=== PATIENT | female | born 1990 | race African-American/Black ===

== ENCOUNTER 2018-01-01 13:06 | Emergency (ER) | payer MEDICAID ==
[~2018-01-01] VITALS: Ht 157.5 cm; Wt 59.0 kg
[2018-01-01 13:20] VITALS: BP 99/68
--- NOTE | 2018-01-01 13:43 | Emergency Room Report ---
History of Present Illness General Chief Complaint: Abdominal Pain Source: Patient Present Illness HPI 27-year-old female patient presents to ER complaining of abdominal pain for the past 4 days. Reports was previously seen at another hospital where she had labs and CT imaging done, states that she was waiting for a while and known gave her the results of her tests or imaging so she decided to leave. Denies blood in her vomit. Reports last bowel movement several days ago. Denies diarrhea. Denies travel outside of the [place]. Denies contacts with similar symptoms. Denies history of abdominal surgery. Reports history of smoking marijuana. Denies fever, chest pain, shortness of breath, dysuria, hematuria, flank pain, back pain. Allergies: Coded Allergies: No Known Allergies (Unverified , 01/01/18) Patient History Past Medical History: see triage record Last Menstrual Period: December, Now: No Reviewed Nursing Documentation: PMH: Agreed; PSxH: Agreed Nursing Documentation-PMH Past Medical History: No Stated History Review of Systems All Other Systems: negative except mentioned in HPI Physical Exam Vital Signs Date Time Temp Pulse Resp B/P (MAP) Pulse Ox O2 Delivery O2 Flow Rate FiO2 01/01/18 13:15 98.1 88 20 104/67 98 Room Air 98.1 Sp02 EP Interpretation: reviewed, normal General Appearance: well appearing, no apparent distress, alert, GCS 15, non- toxic Head: normocephalic, atraumatic Eyes: bilateral eye normal inspection, bilateral eye PERRL ENT: hearing grossly normal, normal pharynx, no angioedema, normal voice, uvula midline, moist mucus membranes Neck: full range of motion Respiratory: lungs clear, normal breath sounds, no rhonchi, no respiratory distress, no accessory muscle use, no wheezing, speaking full sentences Cardiovascular #1: regular rate, rhythm, no edema Gastrointestinal: soft, no mass, non-distended, no guarding, no rebound, tenderness - positive Viveros sign, other - negative Rovsing, negative obturator Genitourinary: no CVA tenderness Musculoskeletal: back normal, digits/nails normal, gait/station normal, normal range of motion, non-tender Neurologic: alert, oriented x3, responsive, motor strength/tone normal, sensory intact Psychiatric: mood/affect normal Skin: no rash Medical Decision Making PA Attestation Dr. Rodriguez is my supervising Physician whom patient management has been discussed with. Diagnostic Impression: Primary Impression: UTI (urinary tract infection) Additional Impressions: Sludge in gallbladder Constipation ER Course Pt. presents to the ED c/o abdominal pain and vomiting. Ddx considered but are not limited to UTI, cholelithiasis, cholecystitis, pancreatitis, appendicitis, diverticulitis, constipation, marijuana use. patient initially complaining of right lower quadrant pain on physical exam no palpable tenderness to palpation in right lower quadrant, negative obturator, negative Rovsing, low suspicion for appendicitis. Does not require CT imaging. Begin abdominal pain workup. Provided patient with pain medication. ordered ultrasound to rule out possible gallbladder problems due to positive Viveros sign exam. Vital signs: are WNL, pt. is afebrile ORDERS: CBC, CMP, Lipase, UA, CT abdomen pelvis, Zofran, GI cocktail and pain medication. ER COURSE: CBC mild elevation of WBC CMP no elevation of LFTs Lipase within normal limits UA shows elevated WBCs, likely UTI, with elevated WBCs in CBC, will provide patient with outpatient antibiotic treatment. Urine negative. Discuss results with patient. ultrasound abdomen shows gallbladder sludge. Discuss results with the patient. Provided patient with copy of results. Instructed patient to followup with PCP and discuss results of report with patient, discuss need for further treatment and referral. Patient reports relief of pain symptoms with medication. Consult with surgeon containers sales representative Dr. Boo, patient seen and evaluated by him at bedside, states patient is okay for outpatient follow-up and treatment. does not require admission at this time. ER precautions given. return to ER for new or worsening of symptoms. Will provide patient with medication for constipation symptoms. recommend Drink plenty of fluids. advised against smoking marijuana as may lead to cyclical vomiting syndrome. take Tylenol for pain symptoms. provided with contact information for Dr. Boo, follow with primary care provider and discuss treatment and referral at that time. DISCHARGE: Rx milk of magnesium Rx Keflex Rx Tylenol At this time pt. is stable for d/c to home. Patient resting comfortably, in no acute distress, nontoxic appearing, talking without difficulty. Rx provided to patient. Patient to take medications as instructed Will provide with patient care instructions and any necessary prescriptions. Care plan and follow-up instructions provided. Patient instructed to follow-up with primary care provider in 3 - 5 days. Patient questions asked and answered. Patient reports understanding and agreement to treatment plan. ER precautions given. Patient instructed to return to ER immediately for any new or worsening of symptoms including but not limited to increasing SOB, persistent fever, worsening of pain symptoms, intractable vomiting, blood in stool, urine, and/or emesis. - Please note that this Emergency Department Report was dictated using [employer] Markets[employer] services director technology software, occasionally this can lead to erroneous entry secondary to interpretation by the dictation equipment. Labs Test 01/01/18 13:50 White Blood Count 12.3 K/UL (4.8-10.8) Red Blood Count 4.22 M/UL (4.20-5.40) Hemoglobin 13.7 G/DL (12.0-16.0) Hematocrit 39.6 % (37.0-47.0) Mean Corpuscular Volume 94 FL (80-99) Mean Corpuscular Hemoglobin 32.4 PG (27.0-31.0) Mean Corpuscular Hemoglobin Concent 34.5 G/DL (32.0-36.0) Red Cell Distribution Width 11.1 % (11.6-14.8) Platelet Count 356 K/UL (150-450) Mean Platelet Volume 6.6 FL (6.5-10.1) Neutrophils (%) (Auto) 72.5 % (45.0-75.0) Lymphocytes (%) (Auto) 20.2 % (20.0-45.0) Monocytes (%) (Auto) 5.9 % (1.0-10.0) Eosinophils (%) (Auto) 0.0 % (0.0-3.0) Basophils (%) (Auto) 1.4 % (0.0-2.0) Urine Color Yellow Urine Appearance Slightly cloudy Urine pH 6 (4.5-8.0) Urine Specific [place] 1.015 (1.005-1.035) Urine Protein 1+ (NEGATIVE) Urine Glucose (UA) Negative (NEGATIVE) Urine Ketones Negative (NEGATIVE) Urine Occult Blood 4+ (NEGATIVE) Urine Nitrite Negative (NEGATIVE) Urine Bilirubin Negative (NEGATIVE) Urine Urobilinogen Normal MG/DL (0.0-1.0) Urine Leukocyte Esterase 3+ (NEGATIVE) Urine RBC 5-10 /HPF (0 - 2) Urine WBC 10-15 /HPF (0 - 2) Urine Squamous Epithelial Cells Few /LPF (NONE/OCC) Urine Bacteria Few /HPF (NONE) Urine HCG, Qualitative Negative (NEGATIVE) Sodium Level 139 MMOL/L (136-145) Potassium Level 3.5 MMOL/L (3.5-5.1) Chloride Level 104 MMOL/L (98-107) Carbon Dioxide Level 28 MMOL/L (21-32) Anion Gap 7 mmol/L (5-15) Blood Urea Nitrogen 10 mg/dL (7-18) Creatinine 0.8 MG/DL (0.55-1.30) Estimat Glomerular Filtration Rate > 60 mL/min (>60) Glucose Level 88 MG/DL (74-106) Calcium Level 9.0 MG/DL (8.5-10.1) Total Bilirubin 0.5 MG/DL (0.2-1.0) Aspartate Amino Transf (AST/SGOT) 15 U/L (15-37) Alanine Aminotransferase (ALT/SGPT) 21 U/L (12-78) Alkaline Phosphatase 50 U/L (46-116) Total Protein 7.5 G/DL (6.4-8.2) Albumin 3.7 G/DL (3.4-5.0) Globulin 3.8 g/dL Albumin/Globulin Ratio 1.0 (1.0-2.7) Lipase 77 U/L (73-393) CT/MRI/US Diagnostic Results CT/MRI/US Diagnostic Results : Imaging Test Ordered: abdominal US Impression sludge in gallbladder no appendicitis per [place] air conditioning service technician Impression: Gallbladder sludge. Negative for stones or dilated ducts Unremarkable exam otherwise Last Vital Signs Date Time Temp Pulse Resp B/P (MAP) Pulse Ox O2 Delivery O2 Flow Rate FiO2 01/01/18 13:15 98.1 88 20 104/67 98 Room Air 98.1 Disposition: HOME, SELF-CARE Condition: Stable Scripts Magnesium Hydroxide* (MILK OF MAGNESIA*) 400 Mg/5 Ml Oral.susp 5 ML ORAL Q6HR, #100 ML Prov: Willy Groves P.ALeonarda 01/01/18 Acetaminophen* (TYLENOL EXTRA STRENGTH*) 500 Mg Tablet 500 MG ORAL Q8H PRN for Prn Headache/Temp > 101, #30 TAB 0 Refills Prov: Willy Groves P.A. 01/01/18 Cephalexin* (KEFLEX*) 500 Mg Capsule 500 MG ORAL EVERY 12 HOURS, #14 CAP 0 Refills Prov: Willy Groves 01/01/18 Patient Instructions: Abdominal Pain, Adult, Biliary Colic, Cholelithiasis, [id number], Constipation, Adult, [id number], Gastritis, Adult, Urinary Tract Infection, [id number] Additional Instructions: Followup with primary care provider in 3 -5 days. discuss referral to GI specialist and/or surgeon. Drink plenty of fluids. Take medications as directed. Patient questions asked and answered. ER precautions given, patient instructed to return to ER immediately for any new or worsening of symptoms including but not limited to worsening of abdominal pain, chest pain, shortness of breath, intractable vomiting. Willy Groves Jan 01, 2018 13:43
[2018-01-01] MEDS ORDERED: Mylanta II UD 30ml ORAL ONE (13:45)
[2018-01-01] MEDS ORDERED: Ketorolac 30mg Inj IV ONE (13:45)
[2018-01-01] MEDS ORDERED: Dicyclomine HCl 10mg/5ml oral soln ORAL ONE (13:45)
[2018-01-01] MEDS ORDERED: Lidocaine 2% Visc 15ml soln ORAL ONE (13:45)
[2018-01-01 14:08] LABS: BASOPHILS % (AUTO) 1.4 % (0.0-2.0); HEMATOCRIT 39.6 % (37.0-47.0); HEMOGLOBIN 13.7 G/DL (12.0-16.0); LYMPHOCYTES % (AUTO) 20.2 % (20.0-45.0); MEAN CORPUSCULAR VOLUME 94 FL (80-99); MONOCYTES % (AUTO) 5.9 % (1.0-10.0); NEUTROPHILS % (AUTO) 72.5 % (45.0-75.0); PLATELET COUNT 356 K/UL (150-450); RED BLOOD COUNT 4.22 M/UL (4.20-5.40); RED CELL DISTRIBUTION WIDTH 11.1 % (11.6-14.8); WHITE BLOOD COUNT 12.3 K/UL (4.8-10.8)
[2018-01-01 14:10] LABS: APPEARANCE,URINE SLIGHTLY CLOUDY; BILIRUBIN, URINE NEGATIVE (NEGATIVE); GLUCOSE, URINE (UA) NEGATIVE (NEGATIVE); KETONES,URINE NEGATIVE (NEGATIVE); LEUKOCYTE ESTERASE ,URINE 3+ (NEGATIVE); NITRITE,URINE NEGATIVE (NEGATIVE); PH,URINE 6 (4.5-8.0); PROTEIN,URINE 1+ (NEGATIVE); UROBILINOGEN,URINE NORMAL MG/DL (0.0-1.0)
[2018-01-01 14:12] LABS: COLOR,URINE YELLOW
[2018-01-01 14:18] LABS: ANION GAP 7 mmol/L (5-15); BLOOD UREA NITROGEN 10 mg/dL (7-18); CARBON DIOXIDE 28 MMOL/L (21-32); CHLORIDE 104 MMOL/L (98-107); CREATININE 0.8 MG/DL (0.55-1.30); POTASSIUM 3.5 MMOL/L (3.5-5.1); SODIUM 139 MMOL/L (136-145)
[2018-01-01 14:22] LABS: ALANINE AMINOTRANSFERASE 21 U/L (12-78); ALBUMIN 3.7 G/DL (3.4-5.0); ALKALINE PHOSPHATASE 50 U/L (46-116); ASPARTATE AMINO TRANSFERASE 15 U/L (15-37); BILIRUBIN,TOTAL 0.5 MG/DL (0.2-1.0)
--- NOTE | 2018-01-01 15:53 | Diagnostic Imaging Report ---
Indication: Abdominal pain Technique: Nascimento-scale and duplex images of the upper abdomen were obtained Comparison: none Findings: Gallbladder demonstrates sludge. No stones, wall thickening, nor pericholecystic fluid demonstrated Sonographic Viveros's sign is negative. Common bile duct measures to mm in diameter. No intrahepatic biliary ductal dilatation. Liver demonstrates normal echogenicity, no focal abnormality. Portal vein and hepatic veins are patent. Pancreas is unremarkable. Spleen is unremarkable. Left kidney measures 11 cm in length. Right kidney measures 12.8 cm length. Both kidneys demonstrate normal echogenicity. There is no hydronephrosis. No focal abnormality . Non-aneurysmal abdominal aorta . Impression: Gallbladder sludge. Negative for stones or dilated ducts Unremarkable exam otherwise
[2018-01-01 16:23] VITALS: BP 108/64
[2018-01-01] MEDS ORDERED: Piperacillin/Tazobactam 3.375 GM in NS 110 ML IVPB ONE (17:00)
[2018-01-01] MEDS ORDERED: MILK OF MA400 MG/51 ORAL (17:32)
[2018-01-01] MEDS ORDERED: CEPHALEXIN500 MG ORAL (17:32)
[2018-01-01] MEDS ORDERED: TYLENOL EXTRA500 MG ORAL (17:32)
--- NOTE | 2018-01-01 17:39 | Consultation ---
History of Present Illness General Date patient seen: Jan 01, 2018 Chief Complaint: Abdominal Pain Reason for Consultation: right sided abdominal pain Present Illness HPI 27 year old otherwise healthy female presents with 4 days of right sided abdominal discomfort. First noted pain 4 days ago as right sided cramping. went to [facility] ED but left AMA prior to work up. Was okay since with just intermittent right sided pain / cramping. As did not improve came to [facility] ED today for evaluation. no n/v/f/c. comfortable. states pain improved since arrival to ED. cramping 6/10 at times. mainly right side. no relation to food. states she has not had BM in more than 4 days. In ED noted to have UTI, leukocytosis, and some RUQ pain with otherwise normal ultrasound. Surgery called to evaluate for abdominal pain. patient seen, chart reviewed, patient examined. Allergies: Coded Allergies: No Known Allergies (Unverified , 01/01/18) Patient History History Provided By: Patient, Medical Record, PMD Healthcare decision maker Resuscitation status Advanced Directive on File Past Medical/Surgical History Past Medical/Surgical History: (1) Abdominal pain (2) Constipation (3) UTI (urinary tract infection) (4) Sludge in gallbladder Review of Systems All Other Systems: negative except mentioned in HPI Physical Exam General Appearance: no apparent distress Lines, tubes and drains: peripheral HEENT: normocephalic, atraumatic, anicteric, mucous membranes moist, PERRL Neck: non-tender, normal alignment, supple, normal inspection Respiratory/Chest: lungs clear, normal breath sounds, no respiratory distress, no accessory muscle use Cardiovascular/Chest: normal peripheral pulses, normal rate Abdomen: normal bowel sounds, non tender, soft, no organomegaly, no mass, other - minimal vague right sided pain on deep palpation Extremities: normal inspection Skin Exam: normal pigmentation, warm/dry Neurologic: alert, oriented x 3 Last 24 Hour Vital Signs Date Time Temp Pulse Resp B/P (MAP) Pulse Ox O2 Delivery O2 Flow Rate FiO2 01/01/18 16:23 97.6 94 18 108/64 98 Room Air 97.6 01/01/18 14:36 98.1 01/01/18 14:06 98.1 01/01/18 13:20 98.1 90 21 99/68 99 Room Air 98.1 01/01/18 13:15 98.1 88 20 104/67 98 Room Air 98.1 Laboratory Tests Test 01/01/18 13:50 White Blood Count 12.3 K/UL (4.8-10.8) H Red Blood Count 4.22 M/UL (4.20-5.40) Hemoglobin 13.7 G/DL (12.0-16.0) Hematocrit 39.6 % (37.0-47.0) Mean Corpuscular Volume 94 FL (80-99) Mean Corpuscular Hemoglobin 32.4 PG (27.0-31.0) H Mean Corpuscular Hemoglobin Concent 34.5 G/DL (32.0-36.0) Red Cell Distribution Width 11.1 % (11.6-14.8) L Platelet Count 356 K/UL (150-450) Mean Platelet Volume 6.6 FL (6.5-10.1) Neutrophils (%) (Auto) 72.5 % (45.0-75.0) Lymphocytes (%) (Auto) 20.2 % (20.0-45.0) Monocytes (%) (Auto) 5.9 % (1.0-10.0) Eosinophils (%) (Auto) 0.0 % (0.0-3.0) Basophils (%) (Auto) 1.4 % (0.0-2.0) Urine Color Yellow Urine Appearance Slightly cloudy Urine pH 6 (4.5-8.0) Urine Specific [place] 1.015 (1.005-1.035) Urine Protein 1+ (NEGATIVE) H Urine Glucose (UA) Negative (NEGATIVE) Urine Ketones Negative (NEGATIVE) Urine Occult Blood 4+ (NEGATIVE) H Urine Nitrite Negative (NEGATIVE) Urine Bilirubin Negative (NEGATIVE) Urine Urobilinogen Normal MG/DL (0.0-1.0) Urine Leukocyte Esterase 3+ (NEGATIVE) H Urine RBC 5-10 /HPF (0 - 2) H Urine WBC 10-15 /HPF (0 - 2) H Urine Squamous Epithelial Cells Few /LPF (NONE/OCC) Urine Bacteria Few /HPF (NONE) Urine HCG, Qualitative Negative (NEGATIVE) Sodium Level 139 MMOL/L (136-145) Potassium Level 3.5 MMOL/L (3.5-5.1) Chloride Level 104 MMOL/L (98-107) Carbon Dioxide Level 28 MMOL/L (21-32) Anion Gap 7 mmol/L (5-15) Blood Urea Nitrogen 10 mg/dL (7-18) Creatinine 0.8 MG/DL (0.55-1.30) Estimat Glomerular Filtration Rate > 60 mL/min (>60) Glucose Level 88 MG/DL (74-106) Calcium Level 9.0 MG/DL (8.5-10.1) Total Bilirubin 0.5 MG/DL (0.2-1.0) Aspartate Amino Transf (AST/SGOT) 15 U/L (15-37) Alanine Aminotransferase (ALT/SGPT) 21 U/L (12-78) Alkaline Phosphatase 50 U/L (46-116) Total Protein 7.5 G/DL (6.4-8.2) Albumin 3.7 G/DL (3.4-5.0) Globulin 3.8 g/dL Albumin/Globulin Ratio 1.0 (1.0-2.7) Lipase 77 U/L (73-393) Height (Feet): 5 Height (Inches): 2.00 Weight (Pounds): 130 Assessment/Plan Problem List: (1) Constipation ICD Codes: K59.00 - Constipation, unspecified SNOMED: 44316707 (2) Abdominal pain Assessment & Plan: abdominal pain likely related to constipation. 4 day hx without worsening. ultrasound okay. exam benign. no signs or symptoms of appendicitis or management information systems director issues. leukocytosis likely related to UTI discussed findings with patient. offered admission for observation vs dc with follow up. patient wants to go home. she does not want to be admitted. if symptoms do not improve with bowel care and abx she will return rayna follow up with pcp upon discharge. thank you ICD Codes: R10.9 - Unspecified abdominal pain SNOMED: [id number] Status: stable Erickson Boo Jan 01, 2018 17:39
[2018-01-01 17:43] VITALS: BP 108/64
[2018-01-02] MEDS ORDERED: NKM (07:09)
[2018-01-02] MEDS ORDERED: ZOFRAN4 MG ORAL (07:27)
== END 2018-01-01 17:50 | disposition home or self-care (01) ==
LOC: EMR 14:38 → CANBEDREQ 17:12 → EMR 17:50
DX: N39.0 Urinary tract infection, site not specified (principal); K82.9 Disease of gallbladder, unspecified; K59.00 Constipation, unspecified
CPT/HCPCS: 36415; 76700; 80053; 81003; 81025; 83690; 85025; 87086; 96361; 96365; 96375; 99285; J1885; J2405

== ENCOUNTER 2018-01-02 06:55 | Emergency (ER) | payer MEDICAID ==
[~2018-01-02] VITALS: Ht 154.9 cm; Wt 49.9 kg
[~2018-01-02 06:55] MED LIST: CEPHALEXIN500 MG ORAL; MILK OF MA400 MG/51 ORAL; TYLENOL EXTRA500 MG ORAL
[2018-01-02] MEDS ORDERED: NKM (07:09)
--- NOTE | 2018-01-02 07:26 | Emergency Room Report ---
History of Present Illness General Chief Complaint: Abdominal Pain Source: Patient Present Illness HPI This patient c/o 3-4 days frequent vomiting, nausea. No fever, no change in bowel habits. No abd pain other than discomfort due to vomiting. No dysuria. No similar history. No cp, sob, travel, leg pain/swelling. She does use marijuana daily. No Meds, no PMH Allergies: Coded Allergies: No Known Allergies (Unverified , 01/01/18) Patient History Last Menstrual Period: 01/02/18 Nursing Documentation-PMH Past Medical History: No Stated History Review of Systems Constitutional: Reports: no symptoms Eye: Reports: no symptoms ENT: Reports: no symptoms Respiratory: Reports: no symptoms Cardiovascular: Reports: no symptoms Gastrointestinal: Reports: see HPI, nausea, vomiting Genitourinary: Reports: no symptoms Musculoskeletal: Reports: no symptoms Skin: Reports: no symptoms Psychiatric: Reports: no symptoms Neurological: Reports: no symptoms Endocrine: Reports: no symptoms Hematologic/Lymphatic: Reports: no symptoms Allergic: Reports: no symptoms Physical Exam Vital Signs Date Time Temp Pulse Resp B/P (MAP) Pulse Ox O2 Delivery O2 Flow Rate FiO2 01/02/18 07:07 99.7 90 18 145/85 99 Room Air 99.7 Sp02 EP Interpretation: reviewed, normal General Appearance: normal inspection, well appearing, no apparent distress, alert, GCS 15, non-toxic, other - nausea/vomiting Head: normocephalic, atraumatic Eyes: bilateral eye normal inspection, bilateral eye PERRL, bilateral eye EOMI ENT: normal ENT inspection, hearing grossly normal, normal pharynx, no angioedema, normal voice, moist mucus membranes Neck: normal inspection, full range of motion, supple, no meningismus, no bony tend Respiratory: normal inspection, lungs clear, normal breath sounds, no rhonchi, no respiratory distress, no retraction, no accessory muscle use, no wheezing Cardiovascular #1: normal inspection, regular rate, rhythm, no edema Gastrointestinal: normal inspection, normal bowel sounds, non tender, soft, no mass, non-distended Musculoskeletal: gait/station normal, normal range of motion Neurologic: normal inspection, alert, oriented x3, responsive, motor strength/ tone normal Psychiatric: normal inspection, judgement/insight normal, memory normal Suicide Risk Assessment: Suicidal Ideation: No Had intent to initiate attempt: No Pt's plan for suicide attempt: No Has means to complete attempt: No Skin: normal inspection, normal color, no rash, warm/dry Medical Decision Making Diagnostic Impression: Primary Impression: UTI (urinary tract infection) ER Course slight improved after IV fluids, IV Zofran. but pt. still uncomfortable. she was here yesterday has US gb which showed sludge only, had surgery consult in ED agreed not gb. on today's exam no RUQ tenderness and UA shows UTI as did yesterday. no chart yet from yesterday's ED provider but was given Rx. according to pt. but she did not fill. a: UTI p: Ceftriaxone here Last Vital Signs Date Time Temp Pulse Resp B/P (MAP) Pulse Ox O2 Delivery O2 Flow Rate FiO2 01/02/18 07:07 99.7 90 18 145/85 99 Room Air 99.7 Disposition: HOME, SELF-CARE Condition: Improved Scripts Ondansetron (Zofran) 4 Mg Tablet 4 MG ORAL Q6H PRN for Nausea & Vomiting, #20 TAB 0 Refills Prov: Rk Harrington M.D. 01/02/18 Patient Instructions: Urinary Tract Infection, [id number] Rk Harrington M.D. Jan 02, 2018 07:25
[2018-01-02] MEDS ORDERED: ZOFRAN4 MG ORAL (07:27)
[2018-01-02 07:41] VITALS: BP 117/63
[2018-01-02 08:12] LABS: HEMATOCRIT 39.4 % (37.0-47.0); HEMOGLOBIN 13.6 G/DL (12.0-16.0); LYMPHOCYTES % (AUTO) 11.2 % (20.0-45.0); MEAN CORPUSCULAR VOLUME 93 FL (80-99); MONOCYTES % (AUTO) 2.9 % (1.0-10.0); NEUTROPHILS % (AUTO) 84.8 % (45.0-75.0); PLATELET COUNT 355 K/UL (150-450); RED BLOOD COUNT 4.23 M/UL (4.20-5.40); RED CELL DISTRIBUTION WIDTH 11.2 % (11.6-14.8); WHITE BLOOD COUNT 13.2 K/UL (4.8-10.8)
[2018-01-02] MEDS ORDERED: Ketorolac 30mg Inj IV ONE (08:15)
[2018-01-02 08:27] LABS: ANION GAP 9 mmol/L (5-15); BLOOD UREA NITROGEN 10 mg/dL (7-18); CARBON DIOXIDE 26 MMOL/L (21-32); CHLORIDE 106 MMOL/L (98-107); CREATININE 0.9 MG/DL (0.55-1.30); POTASSIUM 3.9 MMOL/L (3.5-5.1); SODIUM 141 MMOL/L (136-145)
[2018-01-02 08:31] LABS: ALANINE AMINOTRANSFERASE 30 U/L (12-78); ALBUMIN/GLOBULIN RATIO 1.1 (1.0-2.7); ALKALINE PHOSPHATASE 49 U/L (46-116); ASPARTATE AMINO TRANSFERASE 17 U/L (15-37); BILIRUBIN,TOTAL 0.5 MG/DL (0.2-1.0)
[2018-01-02 09:33] LABS: APPEARANCE,URINE SLIGHTLY CLOUDY; BILIRUBIN, URINE NEGATIVE (NEGATIVE); COLOR,URINE PALE YELLOW; GLUCOSE, URINE (UA) NEGATIVE (NEGATIVE); KETONES,URINE 1+ (NEGATIVE); LEUKOCYTE ESTERASE ,URINE 2+ (NEGATIVE); NITRITE,URINE NEGATIVE (NEGATIVE); PH,URINE 8 (4.5-8.0); PROTEIN,URINE NEGATIVE (NEGATIVE); UROBILINOGEN,URINE NORMAL MG/DL (0.0-1.0)
[2018-01-02] MEDS ORDERED: cefTRIAXone 1 GM in NS 55 ML IVPB ONE (10:15)
[2018-01-02 11:10] VITALS: BP_SYST 117; BP_SYST 126; BP_DIAS 63; BP_DIAS 83
== END 2018-01-02 11:10 | disposition home or self-care (01) ==
LOC: EMR 07:24
DX: N39.0 Urinary tract infection, site not specified (principal)
CPT/HCPCS: 36415; 80053; 80307; 81001; 83690; 84703; 85025; 96361; 96365; 96375; 99285; J0696; J1885; J2405

== ENCOUNTER 2018-04-24 09:38 | Emergency (ER) | payer MEDICAID, OTHER ==
[~2018-04-24] VITALS: Ht 157.5 cm; Wt 57.6 kg
[~2018-04-24 09:38] MED LIST changes: +NKM; +ZOFRAN4 MG ORAL
[2018-04-24 10:17] LABS: APPEARANCE,URINE CLEAR; BILIRUBIN, URINE NEGATIVE (NEGATIVE); GLUCOSE, URINE (UA) NEGATIVE (NEGATIVE); KETONES,URINE 4+ (NEGATIVE); LEUKOCYTE ESTERASE ,URINE 1+ (NEGATIVE); NITRITE,URINE NEGATIVE (NEGATIVE); PH,URINE 8 (4.5-8.0); PROTEIN,URINE 2+ (NEGATIVE); UROBILINOGEN,URINE NORMAL MG/DL (0.0-1.0)
[2018-04-24 10:24] LABS: COLOR,URINE YELLOW
--- NOTE | 2018-04-24 10:32 | Emergency Room Report ---
History of Present Illness General Chief Complaint: Nausea, Vomiting, and Diarrhea Source: Patient Present Illness HPI 27-year-old female with no medical problems, no surgical history, no drug use other than occasional marijuana presents with three-day history of intermittent vomiting and diarrhea, reports only mild to moderate crampy non-radiating abdominal pain in her periumbilical area whenever she is about to have vomiting episodes, reports it's resolved when she vomits. She thinks she may be dehydrated so she came into the ED again, she is not having current pain, reports she's had probably 10-20 episodes of vomiting and diarrhea and reports that they both happen simultaneously. She denies any recent antibiotic use, and reports she's not try medications for her symptoms at all. Allergies: Coded Allergies: No Known Allergies (Unverified , 01/01/18) Patient History Past Medical History: see triage record Last Menstrual Period: 03/27/18 Reviewed Nursing Documentation: PMH: Agreed; PSxH: Agreed Nursing Documentation-PMH Past Medical History: No Stated History Review of Systems All Other Systems: negative except mentioned in HPI Physical Exam Vital Signs Date Time Temp Pulse Resp B/P (MAP) Pulse Ox O2 Delivery O2 Flow Rate FiO2 04/24/18 09:40 98.2 89 17 115/71 99 Room Air Sp02 EP Interpretation: reviewed, normal General Appearance: no apparent distress, alert, non-toxic Head: normocephalic Eyes: bilateral eye normal inspection, bilateral eye PERRL, bilateral eye EOMI ENT: normal ENT inspection, hearing grossly normal, normal pharynx, no angioedema, normal voice, moist mucus membranes Neck: normal inspection, full range of motion, supple, supple/symm/no masses Respiratory: chest non-tender, lungs clear, normal breath sounds, chest symmetrical, palpation of chest normal Cardiovascular #1: normal peripheral pulses, regular rate, rhythm Cardiovascular #2: 2+ radial (R), 2+ radial (L) Gastrointestinal: normal inspection, non tender, soft, no mass, no guarding, no rebound Rectal: deferred Genitourinary: normal inspection, no CVA tenderness Musculoskeletal: back normal, gait/station normal, normal range of motion, non- tender, no calf tenderness Neurologic: alert, responsive, lining layer III-XII nml as tested, motor strength/tone normal, sensory intact, speech normal Psychiatric: judgement/insight normal, memory normal, mood/affect normal Skin: normal color, no rash, warm/dry, normal turgor Lymphatic: no adenopathy Medical Decision Making Diagnostic Impression: Primary Impression: Abdominal pain Additional Impression: Nausea, vomiting, and diarrhea ER Course Other than hematuria and ketonuria, patient's workup was fairly unremarkable, she has a soft nontender abdomen, normal pulse exam, do not suspect aortic dissection or aneurysm or any other pathology that is acute, perhaps just dehydration from intermittent GI losses.Patient instructed to follow-up with PMD for GI referral, as well as possible urology referral for hematuria. CT/MRI/US Diagnostic Results CT/MRI/US Diagnostic Results : Imaging Test Ordered: ct a/p Impression nad, nonspecific enteritis Last Vital Signs Date Time Temp Pulse Resp B/P (MAP) Pulse Ox O2 Delivery O2 Flow Rate FiO2 04/24/18 09:40 98.2 89 17 115/71 99 Room Air Disposition: HOME, SELF-CARE Referrals: NON PHYSICIAN (PCP) SHERMAN GANNON M.D Apr 24, 2018 10:32
[2018-04-24 10:46] LABS: HEMATOCRIT 39.9 % (37.0-47.0); MEAN CORPUSCULAR VOLUME 92 FL (80-99); PLATELET COUNT 322 K/UL (150-450); RED BLOOD COUNT 4.35 M/UL (4.20-5.40); RED CELL DISTRIBUTION WIDTH 10.8 % (11.6-14.8); WHITE BLOOD COUNT 7.5 K/UL (4.8-10.8)
[2018-04-24 10:52] LABS: ANION GAP 12 mmol/L (5-15); BLOOD UREA NITROGEN 12 mg/dL (7-18); CALCIUM 9.6 MG/DL (8.5-10.1); CARBON DIOXIDE 26 MMOL/L (21-32); CHLORIDE 101 MMOL/L (98-107); CREATININE 0.8 MG/DL (0.55-1.30); POTASSIUM 3.5 MMOL/L (3.5-5.1); SODIUM 139 MMOL/L (136-145)
[2018-04-24 10:56] LABS: ALANINE AMINOTRANSFERASE 35 U/L (12-78); ALBUMIN 4.2 G/DL (3.4-5.0); ALBUMIN/GLOBULIN RATIO 0.8 (1.0-2.7); ALKALINE PHOSPHATASE 52 U/L (46-116); ASPARTATE AMINO TRANSFERASE 28 U/L (15-37); BILIRUBIN,TOTAL 0.5 MG/DL (0.2-1.0)
--- NOTE | 2018-04-24 12:25 | Diagnostic Imaging Report ---
Indication: Abdominal pain, 3 8 history of intermittent vomiting and diarrhea Technique: Spiral acquisitions obtained through the abdomen and pelvis. No oral contrast utilized, per emergency room physician request No IV contrast utilized, per referring physician request.. Multiplanar reconstructions were generated. Total dose length product 556.98 mGycm. CTDIvol(s) 11.42 mGy. Dose reduction achieved using automated exposure control Comparison: None Findings: Lack of enteric contrast limits assessment of the GI tract. A normal appendix is visualized. No evidence of diverticulosis or diverticulitis. There is trace free pelvic fluid. No small bowel distention. No free intraperitoneal gas. There is wall thickening of the proximal jejunum. No small bowel distention. The distal esophagus, stomach, duodenum are unremarkable. Lack of IV contrast limits assessment of the solid organs. The top of the liver is not included in the imaging volume; patient not rescanned as diagnostic yield thought not to be worth the risk of additional radiation exposure. Gallbladder, bile ducts, pancreas, spleen, adrenals, kidneys are unremarkable. No retroperitoneal or mesenteric mass or adenopathy. No pelvic mass or adenopathy. Uterus and ovaries are unremarkable. The included lung bases are clear. The bones are unremarkable. Impression: Limited exam, due to lack of enteric and IV contrast administration Probable jejunal wall thickening, likely indicative of enteritis, nonspecific as regards etiology The CT scanner at [facility] is accredited by the [employer] and the scans are performed using protocols designed to limit radiation exposure to as low as reasonably achievable to attain images of sufficient resolution adequate for diagnostic evaluation.
[2018-04-24] MEDS ORDERED: DICYCLOMINE HCL10 MG PO (13:28)
[2018-04-24 13:31] VITALS: BP 122/76
[2018-04-24 13:45] VITALS: BP 122/76
== END 2018-04-24 13:45 | disposition home or self-care (01) ==
LOC: EMR 10:15
DX: R10.9 Unspecified abdominal pain (principal); R11.2 Nausea with vomiting, unspecified; R19.7 Diarrhea, unspecified
CPT/HCPCS: 36415; 74176; 80053; 81003; 83690; 84702; 85007; 85025; 96361; 96374; 99284; J2405

== ENCOUNTER 2018-07-29 12:08 | Emergency (ER) | payer OTHER ==
[~2018-07-29] VITALS: Ht 157.5 cm; Wt 59.0 kg
[~2018-07-29 12:08] MED LIST changes: +DICYCLOMINE HCL10 MG PO
[2018-07-29] MEDS ORDERED: NKM (12:17)
[2018-07-29] MEDS ORDERED: Morphine Sulfate 4mg/ml Inj (IV USE ONLY) IVP ONE (12:45)
[2018-07-29 12:52] VITALS: BP 124/81
--- NOTE | 2018-07-29 12:54 | NUR ---
ED Nurse Note:blood and urine sent to labs, given IV fluids and nausea meds
[2018-07-29 13:05] LABS: HEMATOCRIT 39.5 % (37.0-47.0); HEMOGLOBIN 13.4 G/DL (12.0-16.0); MEAN CORPUSCULAR VOLUME 96 FL (80-99); PLATELET COUNT 320 K/UL (150-450); RED BLOOD COUNT 4.13 M/UL (4.20-5.40); RED CELL DISTRIBUTION WIDTH 11.9 % (11.6-14.8); WHITE BLOOD COUNT 14.9 K/UL (4.8-10.8)
[2018-07-29 13:06] LABS: APPEARANCE,URINE CLEAR; BILIRUBIN, URINE NEGATIVE (NEGATIVE); GLUCOSE, URINE (UA) NEGATIVE (NEGATIVE); KETONES,URINE 4+ (NEGATIVE); LEUKOCYTE ESTERASE ,URINE 2+ (NEGATIVE); NITRITE,URINE NEGATIVE (NEGATIVE); PH,URINE 8 (4.5-8.0); PROTEIN,URINE 2+ (NEGATIVE); UROBILINOGEN,URINE NORMAL MG/DL (0.0-1.0)
[2018-07-29 13:17] LABS: COLOR,URINE YELLOW
[2018-07-29 13:19] LABS: ANION GAP 15 mmol/L (5-15); BLOOD UREA NITROGEN 13 mg/dL (7-18); CALCIUM 9.6 MG/DL (8.5-10.1); CARBON DIOXIDE 21 MMOL/L (21-32); CHLORIDE 103 MMOL/L (98-107); CREATININE 0.8 MG/DL (0.55-1.30); POTASSIUM 3.5 MMOL/L (3.5-5.1); SODIUM 139 MMOL/L (136-145)
[2018-07-29] MEDS ORDERED: Dicyclomine HCl 10mg/5ml oral soln ORAL ONE (13:45)
--- NOTE | 2018-07-29 15:06 | Emergency Room Report ---
History of Present Illness General Chief Complaint: Nausea, Vomiting, and Diarrhea Source: Patient Present Illness HPI Pt. presents to the ED c/o N/V/D since yesterday. Denies blood in the vomit or stool denies black tarry stools reports loose bowel movements she states she's been vomiting all night she reports generalized 8/10 in severity abdominal cramping primarily before episodes of vomiting or diarrhea. Patient denies she states she is currently on her period denies fevers, chills, recent travel or ill contacts with similar symptoms. Patient believes that she had food poisoning as her symptoms began 30 minutes after eating brunch. Patient states that other people ate similar food who did not have symptoms. Pt. reports not being able to tolerate fluids or food. Allergies: Coded Allergies: No Known Allergies (Unverified , 01/01/18) Patient History Past Medical History: see triage record Past Surgical History: none Pertinent Family History: none Last Menstrual Period: currently on period Now: No : 1 Reviewed Nursing Documentation: PMH: Agreed; PSxH: Agreed Nursing Documentation-PMH Past Medical History: No Stated History Review of Systems All Other Systems: negative except mentioned in HPI Physical Exam Vital Signs Date Time Temp Pulse Resp B/P (MAP) Pulse Ox O2 Delivery O2 Flow Rate FiO2 07/29/18 12:13 97.9 73 18 124/81 98 Room Air Sp02 EP Interpretation: reviewed, normal General Appearance: alert, GCS 15, non-toxic, mild distress - persistent vomiting during PE Head: normocephalic, atraumatic Eyes: bilateral eye normal inspection, bilateral eye PERRL ENT: hearing grossly normal, normal voice Neck: full range of motion Respiratory: lungs clear, normal breath sounds, speaking full sentences Cardiovascular #1: regular rate, rhythm Gastrointestinal: soft, tenderness - generalized ttp, other - hyperactive bs in all 4 quadrants. Rectal: deferred Genitourinary: normal inspection, no CVA tenderness Musculoskeletal: back normal, gait/station normal, normal range of motion, non- tender Neurologic: alert, oriented x3, responsive, motor strength/tone normal, sensory intact, speech normal, grossly normal Psychiatric: judgement/insight normal Skin: normal color, no rash, warm/dry, well hydrated Lymphatic: no adenopathy Medical Decision Making PA Attestation Dr. Alberto is my supervising Physician whom patient management has been discussed with. Diagnostic Impression: Primary Impression: Nausea, vomiting, and diarrhea Additional Impression: Dehydration, mild ER Course Pt. presents to the ED c/oN/V/D since yesterday. Denies blood in the vomit or stool denies black tarry stools reports loose bowel movements she states she's been vomiting all night she reports generalized 8/10 in severity abdominal cramping primarily before episodes of vomiting or diarrhea. Patient denies she states she is currently on her period denies fevers, chills, recent travel or ill contacts with similar symptoms. Patient believes that she had food poisoning as her symptoms began 30 minutes after eating brunch. Patient states that other people ate similar food who did not have symptoms. She denies THC use. Ddx considered but are not limited to GE, colitis, acute appy, SBO, Cyclical Vomiting secondary to THC, * Vital signs: pt. is afebrile, H&PE are most consistent with GE most likely viral in etiology, no evidence to suggest acute abdomen on physical exam. ORDERS: -CBC: 14.9 wbc's most likely acute elevation due to N/V/D -BMP: unremarkable -LIpase: WNL -Urine Hcg: Negative ED INTERVENTIONS: -1000 NS iv hydration, -Zofran 4mg -Bentyl PO - Patient is able to tolerate oral fluid challenge after above interventions.-I do not identify an emergent condition at this time. With current presentation, pt. is stable for close outpatient follow up and conservative treatment. D/w pt. to return promptly to ED with worsening or new symptoms.- Pt. verbalizes' understanding and agreement with proposed treatment plan. DISCHARGE: At this time pt. is stable for d/c to home. Will provide printed patient care instructions, and any necessary prescriptions. Care plan and follow up instructions have been discussed with the patient prior to discharge. Labs Test 07/29/18 12:39 07/29/18 12:40 07/29/18 12:45 Sodium Level 139 MMOL/L (136-145) Potassium Level 3.5 MMOL/L (3.5-5.1) Chloride Level 103 MMOL/L (98-107) Carbon Dioxide Level 21 MMOL/L (21-32) Anion Gap 15 mmol/L (5-15) Blood Urea Nitrogen 13 mg/dL (7-18) Creatinine 0.8 MG/DL (0.55-1.30) Estimat Glomerular Filtration Rate > 60 mL/min (>60) Glucose Level 130 MG/DL (74-106) Calcium Level 9.6 MG/DL (8.5-10.1) Lipase 52 U/L (73-393) White Blood Count 14.9 K/UL (4.8-10.8) Red Blood Count 4.13 M/UL (4.20-5.40) Hemoglobin 13.4 G/DL (12.0-16.0) Hematocrit 39.5 % (37.0-47.0) Mean Corpuscular Volume 96 FL (80-99) Mean Corpuscular Hemoglobin 32.3 PG (27.0-31.0) Mean Corpuscular Hemoglobin Concent 33.9 G/DL (32.0-36.0) Red Cell Distribution Width 11.9 % (11.6-14.8) Platelet Count 320 K/UL (150-450) Mean Platelet Volume 5.9 FL (6.5-10.1) Neutrophils (%) (Auto) % (45.0-75.0) Lymphocytes (%) (Auto) % (20.0-45.0) Monocytes (%) (Auto) % (1.0-10.0) Eosinophils (%) (Auto) % (0.0-3.0) Basophils (%) (Auto) % (0.0-2.0) Differential Total Cells Counted 100 Neutrophils % (Manual) 89 % (45-75) Lymphocytes % (Manual) 3 % (20-45) Monocytes % (Manual) 4 % (1-10) Eosinophils % (Manual) 0 % (0-3) Basophils % (Manual) 0 % (0-2) Band Neutrophils 4 % (0-8) Platelet Estimate Adequate Platelet Morphology Normal Red Blood Cell Morphology Normal Urine Color Yellow Urine Appearance Clear Urine pH 8 (4.5-8.0) Urine Specific [place] 1.010 (1.005-1.035) Urine Protein 2+ (NEGATIVE) Urine Glucose (UA) Negative (NEGATIVE) Urine Ketones 4+ (NEGATIVE) Urine Blood 4+ (NEGATIVE) Urine Nitrite Negative (NEGATIVE) Urine Bilirubin Negative (NEGATIVE) Urine Urobilinogen Normal MG/DL (0.0-1.0) Urine Leukocyte Esterase 2+ (NEGATIVE) Urine RBC 5-10 /HPF (0 - 2) Urine WBC 2-4 /HPF (0 - 2) Urine Squamous Epithelial Cells Few /LPF (NONE/OCC) Urine Bacteria Few /HPF (NONE) Urine Mucus Few /LPF (NONE/OCC) Urine HCG, Qualitative Negative (NEGATIVE) Last Vital Signs Date Time Temp Pulse Resp B/P (MAP) Pulse Ox O2 Delivery O2 Flow Rate FiO2 07/29/18 13:30 97.9 07/29/18 12:52 91 18 124/81 98 Room Air Status: improved Disposition: HOME, SELF-CARE Condition: Stable Scripts Ondansetron Odt* (ZOFRAN ODT*) 4 Mg Tab.rapdis 4 MG BC EVERY 6 HOURS PRN for Nausea & Vomiting, #10 TAB 0 Refills Prov: Joanna Nash 07/29/18 Dicyclomine Hcl* (DICYCLOMINE HCL*) 10 Mg Capsule 10 MG PO QID, #12 CAP Prov: Joanna Nash 07/29/18 Referrals: NON PHYSICIAN (PCP) Patient Instructions: Diarrhea, Adult, [id number], Diarrhea, Infant, Nausea and Vomiting, Adult, [id number] Additional Instructions: Take medications as directed. Follow up with a Primary Care Provider in 3-5 days, even if your symptoms have resolved. --Please review list of primary care clinics, if you do not already have a primary care provider Return sooner to ED if new symptoms occur, or current symptoms become worse. - Please note that this Emergency Department Report was dictated using [employer] instrument repairer technology software, occasionally this can lead to erroneous entry secondary to interpretation by the dictation equipment. Joanna Nash Jul 29, 2018 15:06
[2018-07-29] MEDS ORDERED: ONDANSETRON ODT4 MG BC (15:07)
[2018-07-29] MEDS ORDERED: DICYCLOMINE HCL10 MG PO (15:07)
[2018-07-29 15:35] VITALS: BP 124/81
--- NOTE | 2018-07-29 15:37 | NUR ---
ER DISCHARGE NOTE: Patient is cleared to be discharged per ERMD, pt is aox4, on room air, with stable vital signs. pt was given dc and prescription instructions, pt was able to verbalize understanding, pt id band and iv site removed without complications. pt is able to ambulate with steady gait. pt took all belongings.
== END 2018-07-29 15:37 | disposition home or self-care (01) ==
LOC: EMR 13:05
DX: R11.2 Nausea with vomiting, unspecified (principal); R19.7 Diarrhea, unspecified; E86.0 Dehydration
CPT/HCPCS: 36415; 80048; 81003; 81025; 83690; 85007; 85025; 96361; 96374; 96375; 99284; J2270; J2405

== ENCOUNTER 2018-10-24 01:35 | Emergency (ER) | payer OTHER ==
[~2018-10-24] VITALS: Ht 157.5 cm; Wt 59.0 kg
[~2018-10-24 01:35] MED LIST changes: +ONDANSETRON ODT4 MG BC
[2018-10-24 02:10] VITALS: BP 112/75
[2018-10-24] MEDS ORDERED: NKM (02:18)
--- NOTE | 2018-10-24 02:28 | Emergency Room Report ---
History of Present Illness General Chief Complaint: Female Urogenital Problems Source: Patient Present Illness HPI Is a 27-year-old female with no cerumen past medical history she presents with chief complaint of vaginal bleeding. She's been having vaginal bleeding for about 3 weeks now. About 3-4 tampons a day. Occasional cramping pain. She did not check to see if she is . No fever chills but no nausea no vomiting. No abdominal pain. Denies any other complaint. Never had this problem before. Allergies: Coded Allergies: No Known Allergies (Unverified , 01/01/18) Patient History Past Medical History: see triage record, old chart reviewed Past Surgical History: none Pertinent Family History: none Social History: Denies: smoking Last Menstrual Period: 09/22/18 Now: No Immunizations: other Reviewed Nursing Documentation: PMH: Agreed; PSxH: Agreed Nursing Documentation-PMH Past Medical History: No Stated History Review of Systems Eye: Denies: eye pain, blurred vision ENT: Denies: ear pain, nose congestion, throat swelling Respiratory: Denies: cough, shortness of breath Cardiovascular: Denies: chest pain, palpitations Gastrointestinal: Denies: abdominal pain, diarrhea, nausea, vomiting Genitourinary: Reports: vag bleed/dc Musculoskeletal: Denies: back pain, joint pain Skin: Denies: rash Neurological: Denies: headache, numbness Endocrine: Denies: increased thirst, increased urine Hematologic/Lymphatic: Denies: easy bruising All Other Systems: negative except mentioned in HPI Physical Exam Vital Signs Date Time Temp Pulse Resp B/P (MAP) Pulse Ox O2 Delivery O2 Flow Rate FiO2 10/24/18 02:10 98.4 84 16 112/75 (87) 97 Room Air vitals normal Sp02 EP Interpretation: reviewed, normal General Appearance: well appearing, no apparent distress, alert Head: normocephalic, atraumatic Eyes: bilateral eye PERRL, bilateral eye EOMI ENT: hearing grossly normal, normal pharynx Neck: full range of motion, supple, no meningismus Respiratory: chest non-tender, lungs clear, normal breath sounds Cardiovascular #1: regular rate, rhythm, no murmur Gastrointestinal: normal bowel sounds, non tender, no mass, no organomegaly, no bruit, non-distended Musculoskeletal: back normal, gait/station normal, normal range of motion Psychiatric: mood/affect normal Skin: warm/dry Medical Decision Making Diagnostic Impression: Primary Impression: Dysfunctional uterine bleeding ER Course Patient with dysfunctional uterine bleeding. No evidence of severe anemia requiring blood transfusion. No ectopic . No . We'll discharge home with follow-up with GRAPHIC EDITOR. Last Vital Signs Date Time Temp Pulse Resp B/P (MAP) Pulse Ox O2 Delivery O2 Flow Rate FiO2 10/24/18 02:10 98.4 84 16 112/75 (87) 97 Room Air Status: unchanged Disposition: HOME, SELF-CARE Condition: Stable Scripts Ibuprofen* (MOTRIN*) 600 Mg Tablet 600 MG ORAL THREE TIMES A DAY, #30 TAB 0 Refills Prov: Ismael Silverman MD 10/24/18 Referrals: [facility],REFERRING (PCP) Additional Instructions: Follow-up with your doctor in 7 days. You will need a referral to see a weed eradicator for further workup. Return if worse. Ismael Silverman MD Oct 24, 2018 02:28
[2018-10-24] MEDS ORDERED: Ketorolac 30mg Inj IV ONE (02:30)
[2018-10-24 02:46] LABS: BASOPHILS % (AUTO) 1.3 % (0.0-2.0); EOSINOPHILS % (AUTO) 0.9 % (0.0-3.0); HEMATOCRIT 36.3 % (37.0-47.0); HEMOGLOBIN 12.5 G/DL (12.0-16.0); LYMPHOCYTES % (AUTO) 33.1 % (20.0-45.0); MEAN CORPUSCULAR VOLUME 93 FL (80-99); MONOCYTES % (AUTO) 6.8 % (1.0-10.0); NEUTROPHILS % (AUTO) 57.8 % (45.0-75.0); PLATELET COUNT 377 K/UL (150-450); RED BLOOD COUNT 3.88 M/UL (4.20-5.40); RED CELL DISTRIBUTION WIDTH 11.2 % (11.6-14.8); WHITE BLOOD COUNT 11.9 K/UL (4.8-10.8)
[2018-10-24 02:49] LABS: APPEARANCE,URINE CLEAR; BILIRUBIN, URINE NEGATIVE (NEGATIVE); COLOR,URINE PALE YELLOW; GLUCOSE, URINE (UA) NEGATIVE (NEGATIVE); KETONES,URINE NEGATIVE (NEGATIVE); NITRITE,URINE NEGATIVE (NEGATIVE); PH,URINE 7 (4.5-8.0); PROTEIN,URINE NEGATIVE (NEGATIVE); UROBILINOGEN,URINE NORMAL MG/DL (0.0-1.0)
[2018-10-24 02:55] LABS: LEUKOCYTE ESTERASE ,URINE 1+ (NEGATIVE)
[2018-10-24 02:57] LABS: ANION GAP 8 mmol/L (5-15); BLOOD UREA NITROGEN 14 mg/dL (7-18); CARBON DIOXIDE 26 MMOL/L (21-32); CHLORIDE 102 MMOL/L (98-107); CREATININE 0.8 MG/DL (0.55-1.30); POTASSIUM 3.9 MMOL/L (3.5-5.1); SODIUM 136 MMOL/L (136-145)
[2018-10-24] MEDS ORDERED: IBUPROFEN600 MG ORAL (03:19)
[2018-10-24 03:31] VITALS: BP 112/75
== END 2018-10-24 03:33 | disposition home or self-care (01) ==
LOC: EMR 02:15
DX: N93.8 Other specified abnormal uterine and vaginal bleeding (principal)
CPT/HCPCS: 36415; 80048; 81001; 81025; 85025; 96374; 99284; J1885

== ENCOUNTER 2018-11-04 01:38 | Emergency (ER) | payer OTHER ==
[~2018-11-04] VITALS: Ht 157.5 cm; Wt 63.5 kg
[~2018-11-04 01:38] MED LIST changes: +IBUPROFEN600 MG ORAL
[2018-11-04] MEDS ORDERED: NKM (01:46)
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
[2018-11-04 01:59] VITALS: BP 110/74
[2018-11-04] MEDS ORDERED: IBUPROFEN600 MG ORAL (02:11)
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
--- NOTE | 2018-11-04 02:31 | NUR ---
ED Nurse Note: pt cleared to be d/c per ERMD, pt discharge and aftercare instruction provided w/ prescription, pt education done via discussion and handout, pt advised to follow up with pcp or return to ed if changes in condition, pt verbalized understanding and agrees with plan, vss, ambulatory w/steady gait, left w/ all belongings. pt left phone number for [employer] to contact.
--- NOTE | 2018-11-04 02:31 | NUR ---
ED Nurse Note: pt was accompanied by friend home.
[2018-11-04 02:32] VITALS: BP 110/74
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
== END 2018-11-04 02:30 | disposition home or self-care (01) ==
LOC: EMR 02:00
DX: S09.90XA Unspecified injury of head, initial encounter (principal); S00.03XA Contusion of scalp, initial encounter; S00.12XA Contusion of left eyelid and periocular area, initial encounter; W50.0XXA Accidental hit or strike by another person, initial encounter; Y92.9 Unspecified place or not applicable
CPT/HCPCS: 70450; 99284

== ENCOUNTER 2019-02-03 17:05 | Emergency (ER) | payer OTHER ==
[~2019-02-03] VITALS: Ht 157.5 cm; Wt 62.1 kg
--- NOTE | 2019-02-03 17:25 | NUR ---
ED Nurse Note: Patient walked into ED from home c/o cut on the right lower leg by the metal happened about 1 hour ago. skin tear noted and bleeding is controlled at the moment. patient reports she did not receive tdap shot.
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
[2019-02-03] MEDS ORDERED: MEDERMA GEL20 GM TP (17:39)
[2019-02-03] MEDS ORDERED: CEPHALEXIN500 MG ORAL (17:39)
[2019-02-03] MEDS ORDERED: BACITRACIN-P28.35 GM TP (17:39)
[2019-02-03 17:42] VITALS: BP 113/74
[2019-02-03] MEDS ORDERED: Tetanus/Diptheria/Pertussis IM ONE (17:45)
[2019-02-03 17:53] VITALS: BP 113/74
--- NOTE | 2019-02-03 17:53 | NUR ---
ER DISCHARGE NOTE: Patient is cleared to be discharged per VANE NAVARRETE pt is aox4, on room air, with stable vital signs. pt was given dc and prescription instructions, pt was able to verbalize understanding, pt id band removed without complications. pt is able to ambulate with steady gait. pt took all belongings.
[2019-02-03] MEDS ORDERED: Neosporin Oint 15gm TOPIC SCH (18:00)
== END 2019-02-03 17:55 | disposition home or self-care (01) ==
LOC: EMR 17:48
DX: S81.811A Laceration without foreign body, right lower leg, initial encounter (principal); Z23 Encounter for immunization; W45.8XXA Other foreign body or object entering through skin, initial encounter; Y92.9 Unspecified place or not applicable
CPT/HCPCS: 90471; 90715; Z7502; 99282

== ENCOUNTER 2019-02-16 05:46 | Emergency (ER) | payer OTHER ==
[~2019-02-16] VITALS: Ht 157.5 cm; Wt 62.1 kg
[~2019-02-16 05:46] MED LIST changes: +BACITRACIN-P28.35 GM TP; +MEDERMA GEL20 GM TP
[2019-02-16 06:20] VITALS: BP 134/80
--- NOTE | 2019-02-16 06:21 | NUR ---
ED Nurse Note: Patient walked in to ER due to laceration, stated that fell on something at home. AAO x4, VSS athis time, skin is dry warm to touch.
[2019-02-16] MEDS ORDERED: CEPHALEXIN500 MG ORAL (06:38)
[2019-02-16] MEDS ORDERED: IBUPROFEN600 MG ORAL (06:38)
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
[2019-02-16] MEDS ORDERED: FLUCONAZOLE100 MG ORAL (06:46)
[2019-02-16 06:49] VITALS: BP 134/80
--- NOTE | 2019-02-16 06:50 | NUR ---
ED Nurse Note: Pt cleared by health care Provider for discharge. DC instructions/prescription was given and explained to pt and verbalized understanding of teachings. All medical deviecs such as ID band removed. Pt is AAO x4, ambulatory and left with all personal belongings.
== END 2019-02-16 06:50 | disposition home or self-care (01) ==
LOC: EMR 06:05
DX: S31.801A Laceration without foreign body of unspecified buttock, initial encounter (principal); W01.198A Fall on same level from slipping, tripping and stumbling with subsequent striking against other object, initial encounter; Y92.039 Unspecified place in apartment as the place of occurrence of the external cause
CPT/HCPCS: 12002; Z7502; 99283

== ENCOUNTER 2019-02-23 14:56 | Emergency (ER) | payer OTHER ==
[~2019-02-23] VITALS: Ht 157.5 cm; Wt 64.0 kg
[~2019-02-23 14:56] MED LIST changes: +FLUCONAZOLE100 MG ORAL
[2019-02-23 15:05] VITALS: BP 110/73
--- NOTE | 2019-02-23 15:05 | NUR ---
ED Nurse Note: Elena walked into ED c/o suture removal, sutures are locatedo n her right buttocks, patient wa just seen here 5 days ago, tootal of 8 sutures, site is not reddened and does not have any discharge, patient is alert and oriented x4, ambulatory with a steady gait, VSS. patient was placed in a room and placed in a gown, will wait for further orders
[2019-02-23] MEDS ORDERED: KETOTIFEN FUMARA5 ML OP (15:34)
[2019-02-23 15:40] VITALS: BP 115/75
--- NOTE | 2019-02-23 15:40 | NUR ---
ER DISCHARGE NOTE: Patient is cleared to be discharged per ERMD, pt is aox4, on room air, with stable vital signs. pt was given dc and prescription instructions, pt was able to verbalize understanding, pt id band removed without complications. pt is able to ambulate with steady gait. pt took all belongings.
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
== END 2019-02-23 16:00 | disposition home or self-care (01) ==
LOC: EMR 15:55
DX: S31.811D Laceration without foreign body of right buttock, subsequent encounter (principal); Z48.02 Encounter for removal of sutures; H10.10 Acute atopic conjunctivitis, unspecified eye
CPT/HCPCS: 99281

== ENCOUNTER 2020-01-10 12:44 | Emergency (ER) | payer OTHER ==
[~2020-01-10] VITALS: Ht 157.5 cm; Wt 68.0 kg
[~2020-01-10 12:44] MED LIST changes: +KETOTIFEN FUMARA5 ML OP
[2020-01-10 13:15] VITALS: BP 131/86
--- NOTE | 2020-01-10 13:15 | NUR ---
ED Nurse Note: Pt walked in from home c/o abdominal pain with n/v x 2 days. Pt is moaning, grasping site, and mildly diaphoretic. Respirations even and tachypneic on room air. Vitals stable as documented. A+Ox4, speaking in full sentences.
--- NOTE | 2020-01-10 13:41 | Emergency Room Report ---
History of Present Illness General Chief Complaint: Abdominal Pain Source: Patient (Wing Rodriguez MD) Present Illness HPI Patient is a 29-year-old female presents after increased nausea and vomiting for the past 2 days. Reports having increased epigastric pain as well as increased right-sided abdominal pain. Patient had been having some increased pain with ambulation. Denies prior similar symptoms in the past. Multiple episodes of vomiting and had been unable to tolerate oral fluids. Patient states she is a marijuana smoker but does not smoke daily. She reports having severe epigastric pain. (Wing Rodriguez MD) Allergies: Coded Allergies: No Known Allergies (Unverified , 01/01/18) COVID-19 Screening Contact w/high risk pt: No Experienced COVID-19 symptoms?: Yes COVID-19 Testing performed FREIGHT AGENT: No (Wing Rodriguez MD) Patient History Past Medical History: see triage record Last Menstrual Period: currently on her period Now: No Reviewed Nursing Documentation: PMH: Agreed; PSxH: Agreed (Wing Rodriguez MD) Nursing Documentation-PMH Past Medical History: No Stated History (Wing Rodriguez MD) Review of Systems All Other Systems: negative except mentioned in HPI (Wnig Rodriguez MD) Physical Exam Vital Signs Date Time Temp Pulse Resp B/P (MAP) Pulse Ox O2 Delivery O2 Flow Rate FiO2 01/10/20 12:59 97.9 96 20 135/80 (98) 99 Room Air Sp02 EP Interpretation: reviewed, normal General Appearance: normal inspection, well appearing, no apparent distress, alert, GCS 15 Head: atraumatic ENT: normal ENT inspection, hearing grossly normal, normal voice Neck: normal inspection, full range of motion, supple, no bony tend Respiratory: normal inspection, lungs clear, normal breath sounds, no respiratory distress, no retraction, no wheezing Cardiovascular #1: regular rate, rhythm, no edema Gastrointestinal: normal inspection, normal bowel sounds, non tender, soft, no guarding, no hernia Genitourinary: no CVA tenderness Musculoskeletal: normal inspection, back normal, normal range of motion Neurologic: alert, motor strength/tone normal, site leasing agent III-XII nml as tested, oriented x3, responsive, speech normal, normal inspection Psychiatric: normal inspection, judgement/insight normal, mood/affect normal (Wing Rodriguez MD) Medical Decision Making Diagnostic Impression: Primary Impression: Colitis Additional Impression: UTI (urinary tract infection) Qualified Codes: N39.0 - Urinary tract infection, site not specified ER Course Patient presented for abdominal pain. Differential diagnosis include was not limited to gastritis, appendicitis, bowel obstruction among others. Because of complexity of patient's case laboratory tests and imaging studies were ordered. Patient was noted to have some overall discomfort to the abdomen with increased tenderness to the right lower abdomen. She does not have any definite guarding or rebound. Patient was given IV fluids and CT imaging was ordered to evaluate for possible appendicitis.Patient was endorsed to Dr. Sanchez pending imaging studies and laboratory testing results. (Wing Rodriguez MD) ER Course Hospital Course 29-year-old female presents the ED complaining of abdominal pain Patient initially seen and evaluated by Dr. Rodriguez; please see his note for full history and physical Clinical course Labs - no leukocytosis, electrolytes ok, LFTs normal, UA + bacteria CT scan shows colitis. appendix unremarkable On reassessment patient states pain feels better. Discussed findings with patient. Given antibiotics in ED. Safe for discharge with close outpatient follow-up. States she has a PMD I feel this is a highly complex case requiring extensive working including EKG/ Rhythm strip, Xray/CT/US, Blood/urine lab work, repeat exams while in ED, and administration of strong opiates/narcotics for pain control, admission to hospital or close patient follow up. Diagnosis - colitis, UTI Stable and discharged to home. Followup with PMD. Return to ED if symptoms recur or worsen Laboratory Tests Test 01/10/20 13:10 01/10/20 14:30 White Blood Count 10.7 K/UL (4.8-10.8) Red Blood Count 4.25 M/UL (4.20-5.40) Hemoglobin 13.3 G/DL (12.0-16.0) Hematocrit 40.3 % (37.0-47.0) Mean Corpuscular Volume 95 FL (80-99) Mean Corpuscular Hemoglobin 31.3 PG (27.0-31.0) H Mean Corpuscular Hemoglobin Concent 33.1 G/DL (32.0-36.0) Red Cell Distribution Width 12.2 % (11.6-14.8) Platelet Count 441 K/UL (150-450) Mean Platelet Volume 5.9 FL (6.5-10.1) L Neutrophils (%) (Auto) 71.5 % (45.0-75.0) Lymphocytes (%) (Auto) 22.8 % (20.0-45.0) Monocytes (%) (Auto) 3.8 % (1.0-10.0) Eosinophils (%) (Auto) 0.3 % (0.0-3.0) Basophils (%) (Auto) 1.6 % (0.0-2.0) Prothrombin Time 11.1 SEC (9.30-11.50) Prothromb Time International Ratio 1.0 (0.9-1.1) Activated Partial Thromboplast Time 23 SEC (23-33) Sodium Level 141 MMOL/L (136-145) Potassium Level 3.1 MMOL/L (3.5-5.1) L Chloride Level 104 MMOL/L (98-107) Carbon Dioxide Level 19 MMOL/L (21-32) L Anion Gap 18 mmol/L (5-15) H Blood Urea Nitrogen 9 mg/dL (7-18) Creatinine 1.0 MG/DL (0.55-1.30) Estimat Glomerular Filtration Rate > 60 mL/min (>60) Glucose Level 159 MG/DL (74-106) H Calcium Level 9.4 MG/DL (8.5-10.1) Total Bilirubin 0.3 MG/DL (0.2-1.0) Aspartate Amino Transf (AST/SGOT) 19 U/L (15-37) Alanine Aminotransferase (ALT/SGPT) 22 U/L (12-78) Alkaline Phosphatase 53 U/L (46-116) Troponin I 0.000 ng/mL (0.000-0.056) Total Protein 8.3 G/DL (6.4-8.2) H Albumin 4.2 G/DL (3.4-5.0) Globulin 4.1 g/dL Albumin/Globulin Ratio 1.0 (1.0-2.7) Lipase 71 U/L (73-393) L Urine Color Bacon Urine Appearance Cloudy Urine pH 9 (4.5-8.0) Urine Specific [place] 1.000 (1.005-1.035) Urine Protein 1+ (NEGATIVE) H Urine Glucose (UA) Negative (NEGATIVE) Urine Ketones 2+ (NEGATIVE) H Urine Blood 5+ (NEGATIVE) H Urine Nitrite Negative (NEGATIVE) Urine Bilirubin Negative (NEGATIVE) Urine Urobilinogen Normal MG/DL (0.0-1.0) Urine Leukocyte Esterase 1+ (NEGATIVE) H Urine RBC Tntc /HPF (0 - 2) H Urine WBC 10-15 /HPF (0 - 2) H Urine Squamous Epithelial Cells Occasional /LPF Urine Amorphous Sediment Moderate /LPF (NONE) H Urine Bacteria Moderate /HPF (NONE) H Urine HCG, Qualitative Negative (NEGATIVE) (Barrie Sanchez MD) CT/MRI/US Diagnostic Results CT/MRI/US Diagnostic Results : Imaging Test Ordered: CT A/P Impression Procedure: CT Abdomen Pelvis w/Contrast EXAM: CT Abdomen and Pelvis With Intravenous Contrast CLINICAL HISTORY: ABD PAIN TECHNIQUE: Axial computed tomography images of the abdomen and pelvis with intravenous contrast. CTDI is 5.4 mGy and DLP is 288.6 mGy-cm. One or more of the following dose reduction techniques were used: automated exposure control, adjustment of the mA and/or kV according to patient size, use of iterative reconstruction technique. COMPARISON: CT abdomen/pelvis on 04/24/2018 FINDINGS: Lung bases: Unremarkable. No mass. No consolidation. ABDOMEN: Liver: Unremarkable. No mass. Gallbladder and bile ducts: Unremarkable. No calcified stones. No ductal dilation. Pancreas: Unremarkable. No mass. No ductal dilation. Spleen: Unremarkable. No splenomegaly. Adrenals: Unremarkable. No mass. Kidneys and ureters: No hydronephrosis or obstructing stone. Stomach and bowel: Mild prominence of the alford of the descending colon, transverse colon, and descending colon may be secondary to underdistention. Element of colitis in the ascending colon and transverse colon is not excluded. Evaluation of the stomach is limited by underdistention. PELVIS: Appendix: Normal appendix. Bladder: Unremarkable. No mass. Reproductive: Follicles in the ovaries. Retroverted uterus. ABDOMEN and PELVIS: Intraperitoneal space: Small amount of fluid in the pelvis may be physiologic. No free air. Bones/joints: No acute fracture. No dislocation. Soft tissues: Umbilical piercing. Vasculature: Unremarkable. No abdominal aortic aneurysm. Lymph nodes: Mildly prominent mesenteric lymph nodes are nonspecific but may be reactive. IMPRESSION: Mild prominence of the alford of the descending colon, transverse colon, and descending colon may be secondary to underdistention. Element of colitis in the ascending colon and transverse colon is not excluded. (Barrie Sanchez MD) Last Vital Signs Date Time Temp Pulse Resp B/P (MAP) Pulse Ox O2 Delivery O2 Flow Rate FiO2 01/10/20 12:59 97.9 96 20 135/80 (98) 99 Room Air Status: improved (Wing Rodriguez MD) Status: improved (Barrie Sanchez MD) Disposition: HOME, SELF-CARE Condition: Stable Scripts Acetaminophen With Codeine (T#3) (TYLENOL #3 TAB*) Y Tab 1 TAB ORAL Q8H PRN for For Pain, #20 TAB Prov: Barrie Sanchez MD 01/10/20 Ondansetron Odt* (ZOFRAN ODT*) 4 Mg Tab.rapdis 4 MG BC EVERY 6 HOURS PRN for Nausea & Vomiting, #10 TAB 0 Refills Prov: Barrie Sanchez MD 01/10/20 Famotidine* (Pepcid 20mg tablet*) 20 Mg Tablet 20 MG ORAL DAILY, #30 TAB 0 Refills Prov: Barrie Sanchez MD 01/10/20 Simethicone* (SIMETHICONE*) 80 Mg Tab.chew 80 MG ORAL Q8H PRN for GAS PAIN, #20 TAB 0 Refills Prov: Barrie Sanchez MD 01/10/20 Dicyclomine Hcl* (DICYCLOMINE HCL*) 10 Mg Capsule 10 MG ORAL QID, #20 CAP Prov: Barrie Sanchez MD 01/10/20 Ciprofloxacin* (CIPRO*) 500 Mg Tablet 500 MG PO BID, #14 TAB Prov: Barrie Sanchez MD 01/10/20 Wing Rodriguez MD Jan 10, 2020 13:41 Barrie Sanchez MD Jan 10, 2020 17:49
[2020-01-10] MEDS ORDERED: Morphine Sulfate 4mg/ml Inj (IV USE ONLY) IVP ONE (13:45)
[2020-01-10] MEDS ORDERED: Omnipaque-300 100ml vial INJ PRN (13:45)
--- NOTE | 2020-01-10 14:11 | NUR ---
ED Nurse Note: pt aware of need for urine specimen.
[2020-01-10 14:19] LABS: BASOPHILS % (AUTO) 1.6 % (0.0-2.0); EOSINOPHILS % (AUTO) 0.3 % (0.0-3.0); HEMATOCRIT 40.3 % (37.0-47.0); HEMOGLOBIN 13.3 G/DL (12.0-16.0); LYMPHOCYTES % (AUTO) 22.8 % (20.0-45.0); MEAN CORPUSCULAR VOLUME 95 FL (80-99); MONOCYTES % (AUTO) 3.8 % (1.0-10.0); NEUTROPHILS % (AUTO) 71.5 % (45.0-75.0); PLATELET COUNT 441 K/UL (150-450); RED BLOOD COUNT 4.25 M/UL (4.20-5.40); RED CELL DISTRIBUTION WIDTH 12.2 % (11.6-14.8); WHITE BLOOD COUNT 10.7 K/UL (4.8-10.8)
[2020-01-10 14:25] LABS: ANION GAP 18 mmol/L (5-15); BLOOD UREA NITROGEN 9 mg/dL (7-18); CALCIUM 9.4 MG/DL (8.5-10.1); CARBON DIOXIDE 19 MMOL/L (21-32); CHLORIDE 104 MMOL/L (98-107); POTASSIUM 3.1 MMOL/L (3.5-5.1); SODIUM 141 MMOL/L (136-145)
[2020-01-10 14:29] LABS: ALANINE AMINOTRANSFERASE 22 U/L (12-78); ALBUMIN 4.2 G/DL (3.4-5.0); ALKALINE PHOSPHATASE 53 U/L (46-116); ASPARTATE AMINO TRANSFERASE 19 U/L (15-37); BILIRUBIN,TOTAL 0.3 MG/DL (0.2-1.0)
--- NOTE | 2020-01-10 14:43 | NUR ---
ED Nurse Note: pt still having 10/10 pain. ED MD made aware.
[2020-01-10 14:53] LABS: APPEARANCE,URINE CLOUDY; COLOR,URINE ORANGE
[2020-01-10 14:54] LABS: BILIRUBIN, URINE NEGATIVE (NEGATIVE); GLUCOSE, URINE (UA) NEGATIVE (NEGATIVE); KETONES,URINE 2+ (NEGATIVE); LEUKOCYTE ESTERASE ,URINE 1+ (NEGATIVE); NITRITE,URINE NEGATIVE (NEGATIVE); PH,URINE 9 (4.5-8.0); PROTEIN,URINE 1+ (NEGATIVE); UROBILINOGEN,URINE NORMAL MG/DL (0.0-1.0)
[2020-01-10] MEDS ORDERED: HYDROmorphone 1mg/ml Carpuject IVP ONE (15:00)
[2020-01-10] MEDS ORDERED: cefTRIAXone 1 GM in NS 55 ML IVPB ONE (15:15)
[2020-01-10 15:29] VITALS: BP 128/81
--- NOTE | 2020-01-10 16:10 | Diagnostic Imaging Report ---
EXAM: CT Abdomen and Pelvis With Intravenous Contrast CLINICAL HISTORY: ABD PAIN TECHNIQUE: Axial computed tomography images of the abdomen and pelvis with intravenous contrast. CTDI is 5.4 mGy and DLP is 288.6 mGy-cm. One or more of the following dose reduction techniques were used: automated exposure control, adjustment of the mA and/or kV according to patient size, use of iterative reconstruction technique. COMPARISON: CT abdomen/pelvis on 04/24/2018 FINDINGS: Lung bases: Unremarkable. No mass. No consolidation. ABDOMEN: Liver: Unremarkable. No mass. Gallbladder and bile ducts: Unremarkable. No calcified stones. No ductal dilation. Pancreas: Unremarkable. No mass. No ductal dilation. Spleen: Unremarkable. No splenomegaly. Adrenals: Unremarkable. No mass. Kidneys and ureters: No hydronephrosis or obstructing stone. Stomach and bowel: Mild prominence of the alford of the descending colon, transverse colon, and descending colon may be secondary to underdistention. Element of colitis in the ascending colon and transverse colon is not excluded. Evaluation of the stomach is limited by underdistention. PELVIS: Appendix: Normal appendix. Bladder: Unremarkable. No mass. Reproductive: Follicles in the ovaries. Retroverted uterus. ABDOMEN and PELVIS: Intraperitoneal space: Small amount of fluid in the pelvis may be physiologic. No free air. Bones/joints: No acute fracture. No dislocation. Soft tissues: Umbilical piercing. Vasculature: Unremarkable. No abdominal aortic aneurysm. Lymph nodes: Mildly prominent mesenteric lymph nodes are nonspecific but may be reactive. IMPRESSION: Mild prominence of the alford of the descending colon, transverse colon, and descending colon may be secondary to underdistention. Element of colitis in the ascending colon and transverse colon is not excluded.
[2020-01-10] MEDS ORDERED: DICYCLOMINE HCL10 MG ORAL (16:55)
[2020-01-10] MEDS ORDERED: ACETAMINOPHEN-1 EAC1 ORAL (16:55)
[2020-01-10] MEDS ORDERED: FAMOTIDINE20 MG ORAL (16:55)
[2020-01-10] MEDS ORDERED: SIMETHICONE80 MG ORAL (16:55)
[2020-01-10] MEDS ORDERED: CIPRO500 MG PO (16:55)
[2020-01-10] MEDS ORDERED: ONDANSETRON ODT4 MG BC (16:55)
[2020-01-10 17:07] VITALS: BP 121/76
== END 2020-01-10 17:07 | disposition home or self-care (01) ==
LOC: EMR 15:08
DX: K52.9 Noninfective gastroenteritis and colitis, unspecified (principal); N39.0 Urinary tract infection, site not specified
CPT/HCPCS: 36415; 74177; 80053; 81003; 81025; 83690; 84484; 85025; 85610; 85730; 87086; 96361; 96365; 96375; J0696; J1170; J2270; J2405; J7030; Q9965; Z7502; 99284

== ENCOUNTER 2020-03-12 00:04 | Emergency (ER) | payer OTHER ==
[~2020-03-12] VITALS: Ht 157.5 cm; Wt 68.0 kg
[~2020-03-12 00:04] MED LIST changes: +ACETAMINOPHEN-1 EAC1 ORAL; +CIPRO500 MG PO; +DICYCLOMINE HCL10 MG ORAL; +FAMOTIDINE20 MG ORAL; +SIMETHICONE80 MG ORAL
[2020-03-12 00:20] VITALS: BP 127/81
--- NOTE | 2020-03-12 00:20 | NUR ---
ED Nurse Note: Patient walked into ED from home for c/o severe abdominal pain/cramping onset today. She also reports n/v. Patient states she is on her menstrual cycle at this time. Patient is aaox4, breathing is normal and unlabored. She appears to be in mild distress due to pain. Patient is moaning and grasping at abdomen.
[2020-03-12] MEDS ORDERED: Metoclopramide 10mg/2ml Inj IVP ONE (00:30)
[2020-03-12] MEDS ORDERED: Ketorolac 30mg Inj IV ONE (00:30)
[2020-03-12] MEDS ORDERED: Morphine Sulfate 2mg/ml Inj(IV/IM USE ONLY) IVP ONE (00:30)
[2020-03-12] MEDS ORDERED: DiphenhydrAMINE 50mg/ml Inj IVP ONE (00:30)
--- NOTE | 2020-03-12 00:33 | Emergency Room Report ---
History of Present Illness General Chief Complaint: Abdominal Pain Source: Patient Present Illness HPI Patient presents with severe cramps associated with her menstruation. She says this happens to her every 3months. Aside from that her menstruation is at the normal time. She does not believe she is but is not using control at this time. She feels feverish but has not documented temperature. Also at times she gets cold sweats when the pain gets severe. She has tried to take medication at home, mainly Tylenol. She says that she vomits this right back up. She denies vomiting blood or coffee grounds. She denies diarrhea. She denies dysuria and states that she has had urinary tract infections in the past. The pain is rated 10/10, slightly crampy but fairly constant and aching pressure in the suprapubic area nonradiating. She denies flank pain. 1 P0 Patient denies exposure to Covid positive contacts. No sore throat, chest pain, palpitations, diarrhea, shortness of breath, joint pain, rashes, depression, anxiety, visual changes, dizziness, headache. Allergies: Coded Allergies: No Known Allergies (Unverified , 01/01/18) COVID-19 Screening Contact w/high risk pt: No Experienced COVID-19 symptoms?: No COVID-19 Testing performed MANAGER FOOD: No Patient History Past Medical History: see triage record, old chart reviewed Social History: Reports: drug use - thc; Denies: smoking, alcohol use Social History Narrative Not working, brought by sister Last Menstrual Period: current Now: No : 1 Para: 0 Reviewed Nursing Documentation: PMH: Agreed; PSxH: Agreed Review of Systems All Other Systems: negative except mentioned in HPI Physical Exam Vital Signs Date Time Temp Pulse Resp B/P (MAP) Pulse Ox O2 Delivery O2 Flow Rate FiO2 03/12/20 00:10 97.5 96 22 127/81 (96) 96 Room Air Sp02 EP Interpretation: reviewed, normal General Appearance: GCS 15 - Although sleepy, mild distress, other - But appearing like she is sleeping Head: normocephalic Eyes: bilateral eye normal inspection - Slight pallor, bilateral eye PERRL, bilateral eye EOMI ENT: moist mucus membranes Neck: supple Respiratory: lungs clear, normal breath sounds Cardiovascular #1: regular rate, rhythm Cardiovascular #2: 2+ radial (R) Gastrointestinal: normal inspection, normal bowel sounds, no mass, non- distended, no guarding, no rebound, tenderness - Suprapubic Genitourinary: no CVA tenderness Musculoskeletal: back normal, normal range of motion, gait/station normal Neurologic: alert, oriented x3, grossly normal Psychiatric: mood/affect normal - Anxious Skin: no rash, warm/dry Medical Decision Making Diagnostic Impression: Primary Impression: Abdominal pain Qualified Codes: R10.30 - Lower abdominal pain, unspecified Additional Impressions: UTI (urinary tract infection) Qualified Codes: N39.0 - Urinary tract infection, site not specified Leukocytosis Qualified Codes: D72.828 - Other elevated white blood cell count ER Course Patient presents with pain associated with menstruation nausea and vomiting. Differential includes ectopic, early , dysmenorrhea, viral syndrome, UTI, ovarian cyst amongst others. Patient evaluated with labs. She alleges that she is not and therefore she will be treated with IV hydration, Reglan, Benadryl, Toradol and a small dose of morphine. WBC elevated. Pyuria. Rocephin ordered. Had CT recently (with normal WBC). "colitis" Still with significant pain. Morphine repeated. Contd pain. Repeat exam - abdomen soft and no guarding. Will follow clinically rather than order CT abdomen. No flank pain. Doubt pyelonephritis. Patient improved. Discussed findings with patient and treatment plan. Discussed importance of outpatient follow-up. Patient stable for outpatient observation and treatment. Laboratory Tests Test 03/12/20 00:35 White Blood Count 14.1 K/UL (4.8-10.8) H Red Blood Count 4.21 M/UL (4.20-5.40) Hemoglobin 13.6 G/DL (12.0-16.0) Hematocrit 39.7 % (37.0-47.0) Mean Corpuscular Volume 94 FL (80-99) Mean Corpuscular Hemoglobin 32.3 PG (27.0-31.0) H Mean Corpuscular Hemoglobin Concent 34.3 G/DL (32.0-36.0) Red Cell Distribution Width 12.2 % (11.6-14.8) Platelet Count 405 K/UL (150-450) Mean Platelet Volume 6.1 FL (6.5-10.1) L Neutrophils (%) (Auto) % (45.0-75.0) Lymphocytes (%) (Auto) % (20.0-45.0) Monocytes (%) (Auto) % (1.0-10.0) Eosinophils (%) (Auto) % (0.0-3.0) Basophils (%) (Auto) % (0.0-2.0) Prothrombin Time 11.7 SEC (9.30-11.50) H Prothrombin Time INR 1.1 (0.9-1.1) Activated Partial Thromboplast Time 24 SEC (23-33) Urine Color Yellow Urine Appearance Clear Urine pH 8 (4.5-8.0) Urine Specific [place] 1.010 (1.005-1.035) Urine Protein 2+ (NEGATIVE) H Urine Glucose (UA) Negative (NEGATIVE) Urine Ketones 3+ (NEGATIVE) H Urine Blood 5+ (NEGATIVE) H Urine Nitrite Negative (NEGATIVE) Urine Bilirubin Negative (NEGATIVE) Urine Urobilinogen Normal MG/DL (0.0-1.0) Urine Leukocyte Esterase 2+ (NEGATIVE) H Urine RBC 20-30 /HPF (0 - 2) H Urine WBC 10-15 /HPF (0 - 2) H Urine Squamous Epithelial Cells Few /LPF (NONE/OCC) Urine Bacteria Few /HPF (NONE) Sodium Level 128 MMOL/L (136-145) L Potassium Level 3.5 MMOL/L (3.5-5.1) Chloride Level 100 MMOL/L (98-107) Carbon Dioxide Level 23 MMOL/L (21-32) Anion Gap 5 mmol/L (5-15) Blood Urea Nitrogen 9 mg/dL (7-18) Creatinine 0.9 MG/DL (0.55-1.30) Estimated Glomerular Filtration Rate > 60 mL/min (>60) Glucose Level 156 MG/DL (74-106) H Calcium Level 9.1 MG/DL (8.5-10.1) Total Bilirubin 0.4 MG/DL (0.2-1.0) Aspartate Amino Transferase (AST) 17 U/L (15-37) Alanine Aminotransferase (ALT) 17 U/L (12-78) Alkaline Phosphatase 57 U/L (46-116) Total Protein 7.3 G/DL (6.4-8.2) Albumin 4.1 G/DL (3.4-5.0) Globulin 3.2 g/dL Albumin/Globulin Ratio 1.3 (1.0-2.7) Lipase 43 U/L (73-393) L Human Chorionic Gonadotropin, Qual Negative (NEGATIVE) Last Vital Signs Date Time Temp Pulse Resp B/P (MAP) Pulse Ox O2 Delivery O2 Flow Rate FiO2 03/12/20 03:50 98.0 81 16 120/85 98 Room Air Status: improved Disposition: HOME, SELF-CARE Condition: Improved Scripts Ibuprofen* (MOTRIN*) 600 Mg Tablet 600 MG ORAL Q6H PRN for FOR PAIN, #16 TAB 0 Refills Prov: Brain Alberto MD 03/12/20 Ondansetron Odt* (ZOFRAN ODT*) 4 Mg Tab.rapdis 4 MG BC EVERY 8 HOURS, #10 TAB 0 Refills Prov: Brain Alberto MD 03/12/20 Cephalexin* (KEFLEX*) 500 Mg Capsule 500 MG ORAL EVERY 6 HOURS, #30 CAP Prov: Brain Alberto MD 03/12/20 Referrals: [facility],REFERRING (PCP) Brain Alberto MD Mar 12, 2020 00:33
[2020-03-12 00:58] LABS: APPEARANCE,URINE CLEAR; BILIRUBIN, URINE NEGATIVE (NEGATIVE); GLUCOSE, URINE (UA) NEGATIVE (NEGATIVE); KETONES,URINE 3+ (NEGATIVE); LEUKOCYTE ESTERASE ,URINE 2+ (NEGATIVE); NITRITE,URINE NEGATIVE (NEGATIVE); PH,URINE 8 (4.5-8.0); PROTEIN,URINE 2+ (NEGATIVE); UROBILINOGEN,URINE NORMAL MG/DL (0.0-1.0)
[2020-03-12 01:02] LABS: HEMATOCRIT 39.7 % (37.0-47.0); HEMOGLOBIN 13.6 G/DL (12.0-16.0); MEAN CORPUSCULAR VOLUME 94 FL (80-99); PLATELET COUNT 405 K/UL (150-450); RED BLOOD COUNT 4.21 M/UL (4.20-5.40); RED CELL DISTRIBUTION WIDTH 12.2 % (11.6-14.8); WHITE BLOOD COUNT 14.1 K/UL (4.8-10.8)
[2020-03-12 01:12] LABS: INR 1.1 (0.9-1.1)
[2020-03-12 01:13] LABS: ANION GAP 5 mmol/L (5-15); BLOOD UREA NITROGEN 9 mg/dL (7-18); CALCIUM 9.1 MG/DL (8.5-10.1); CARBON DIOXIDE 23 MMOL/L (21-32); CHLORIDE 100 MMOL/L (98-107); CREATININE 0.9 MG/DL (0.55-1.30); POTASSIUM 3.5 MMOL/L (3.5-5.1); SODIUM 128 MMOL/L (136-145)
--- NOTE | 2020-03-12 01:15 | NUR ---
ED Nurse Note: Patient states pain is still 10/10; no decrease after medication. ERMD made aware.
[2020-03-12 01:18] LABS: COLOR,URINE YELLOW
[2020-03-12 01:19] LABS: ALANINE AMINOTRANSFERASE 17 U/L (12-78); ALBUMIN 4.1 G/DL (3.4-5.0); ALBUMIN/GLOBULIN RATIO 1.3 (1.0-2.7); ALKALINE PHOSPHATASE 57 U/L (46-116); BILIRUBIN,TOTAL 0.4 MG/DL (0.2-1.0)
[2020-03-12 01:30] LABS: ASPARTATE AMINO TRANSFERASE 17 U/L (15-37)
[2020-03-12] MEDS ORDERED: cefTRIAXone 1 GM in NS 55 ML IVPB ONE (01:30)
[2020-03-12] MEDS ORDERED: Morphine Sulfate 4mg/ml Inj (IV USE ONLY) IVP ONE (01:45)
[2020-03-12 02:15] VITALS: BP 120/80
--- NOTE | 2020-03-12 02:15 | NUR ---
ED Nurse Note: Pt resting in bed, states she feels better after second dose of morphine.
[2020-03-12] MEDS ORDERED: ONDANSETRON ODT4 MG BC (03:26)
[2020-03-12] MEDS ORDERED: IBUPROFEN600 M1 ORAL (03:26)
[2020-03-12] MEDS ORDERED: CEPHALEXIN500 MG ORAL (03:26)
[2020-03-12 03:50] VITALS: BP 120/85
== END 2020-03-12 03:50 | disposition home or self-care (01) ==
LOC: EMR 00:21
DX: N39.0 Urinary tract infection, site not specified (principal); R10.30 Lower abdominal pain, unspecified; D72.828 Other elevated white blood cell count
CPT/HCPCS: 36415; 80053; 81003; 83690; 84703; 85025; 85610; 85730; 87086; 96361; 96365; 96375; 96376; J0696; J1200; J1885; J2270; J2765; J7030; Z7502; 99284